=== PATIENT | male | born 1960 | race American Indian/Alaskan Native ===

== ENCOUNTER 2019-03-18 06:36 | Day surgery (SDC) | payer OTHER ==
[~2019-03-18 06:36] MED LIST: Lactated Ringers 1,000 ML IV SCH; ceFAZolin 2 GM in Premix Bag 1 BAG IV SCH
[2019-03-18] MEDS ORDERED: Lidocaine 2% 5 ML SDV ONE (07:16)
[2019-03-18] MEDS ORDERED: Midazolam 1 MG/ML 2 ML SDV ONE (07:18)
[2019-03-18] MEDS ORDERED: fentaNYL 250 MCG/5 ML SDV ONE (07:18)
[2019-03-18] MEDS ORDERED: Propofol 200 MG/20 ML SDV ONE (07:19)
[2019-03-18] MEDS ORDERED: Bupivacaine 0.5% 10 ML SDV ONE (07:27)
--- NOTE | 2019-03-18 07:33 | PCM.PREANE ---
Preanesthetic Assessment - Anesthesia/Transfusion/Family Hx Anesthesia History: Prior Anesthesia Without Reaction Family History of Anesthesia Reaction: No Transfusion History: No Prior Transfusion(s) - Review of Systems General: No Symptoms Pulmonary: No Symptoms Cardiovascular: No Symptoms Gastrointestinal: No Symptoms Neurological: No Symptoms Other: Reports: None - Physical Assessment NPO Status Date: 03/17/19 O2 Sat by Pulse Oximetry: 94 Respiratory Rate: 16 Vital Signs: Last Vital Signs Temp 97.2 F 03/18/19 07:08 Pulse 91 03/18/19 07:08 Resp 16 03/18/19 07:08 BP 128/92 H 03/18/19 07:08 Pulse Ox 94 L 03/18/19 07:08 Height: 6 ft 1.5 in Weight: 115.666 kg ASA Class: 1 Mental Status: Alert & Oriented x3 Airway Class: Mallampati = 1 Dentition: Reports: Normal Dentition ROM/Head Extension: Full Lungs: Clear to Auscultation, Normal Respiratory Effort Cardiovascular: Regular Rate, Regular Rhythm - Allergies Allergies/Adverse Reactions: Allergies Allergy/AdvReac Type Severity Reaction Status Date / Time No Known Allergies Allergy Verified 03/15/19 10:56 - Blood Blood Available: No - Anesthesia Plan Pre-Op Medication Ordered: None - Acknowledgements Anesthesia Type Planned: General Anesthesia, MAC Pt an Appropriate Candidate for the Planned Anesthesia: Yes Alternatives and Risks of Anesthesia Discussed w Pt/Guardian: Yes Pt/Guardian Understands and Agrees with Anesthesia Plan: Yes PreAnesthesia Questionnaire HEENT History: Reports: Other (See Below) Other HEENT History: wears glasses Gastrointestinal History: Reports: Other (See Below) Other Gastrointestinal History: occasional heartburn- takes Rolaids Musculoskeletal History: Reports: Fracture Other Musculoskeletal History: hx of fx left clavicle, left elbow and right index finger- no hardware Endocrine/Metabolic History: Reports: Obesity/BMI 30+ Dermatologic History: Reports: Other (See Below) Other Dermatologic History: currently has itchy rash on left side of head - Past Surgical History GI Surgical History: Reports: Hernia, Inguinal Musculoskeletal Surgical History: Reports: Other (See Below) Other Musculoskeletal Surgeries/Procedures:: 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 [No Known Home Meds] 03/15/19 [History] - CURRENT (IN HOUSE) MEDS Current Meds: Current Medications Lactated Ringer's (Ringers, Lactated) 1,000 mls @ 125 mls/hr IV ASDIRECTED [facility] Last Admin: 03/18/19 07:15 Dose: 125 mls/hr Discontinued Medications Bupivacaine HCl (Sensorcaine-Mpf 0.5%) Confirm Administered Dose 10 ml .ROUTE .STK-MED ONE Stop: 03/18/19 07:28 Fentanyl (Sublimaze) Confirm Administered Dose 250 mcg .ROUTE .STK-MED ONE Stop: 03/18/19 07:19 Cefazolin Sodium/Dextrose 2 gm (/ Premix) 50 mls @ 100 mls/hr IV ASDIRECTED [facility] Stop: 03/18/19 06:29 Lidocaine (Xylocaine-Mpf 2%) Confirm Administered Dose 5 ml .ROUTE .STK-MED ONE Stop: 03/18/19 07:17 Midazolam HCl (Versed 1 Mg/Ml) Confirm Administered Dose 2 mg .ROUTE .STK-MED ONE Stop: 03/18/19 07:19 Propofol (Diprivan 20 Ml) Confirm Administered Dose 200 mg .ROUTE .STK-MED ONE Stop: 03/18/19 07:20
[2019-03-18] MEDS ORDERED: ceFAZolin/Dextrose,Iso-Osmotic 2 GM/50 ML Duplex Bag IV ONE (07:57)
[2019-03-18] MEDS ORDERED: Rocuronium 100 MG/10 ML Syringe ONE (08:25)
[2019-03-18] MEDS ORDERED: Ondansetron 4 MG/2 ML SDV ONE (08:47)
[2019-03-18] MEDS ORDERED: Dexamethasone 4 MG/ML 5 ML MDV ONE (08:47)
[2019-03-18] MEDS ORDERED: Neostigmine Methylsulfate 1 MG/ML 5 ML Syringe ONE (09:51)
[2019-03-18] MEDS ORDERED: Glycopyrrolate 0.2 MG/ML SDV ONE (09:51)
[2019-03-18] MEDS ORDERED: Ketorolac 30 MG/ML SDV ONE (09:51)
--- NOTE | 2019-03-18 10:30 | PCM.POSTAN ---
POST ANESTHESIA ASSESSMENT - MENTAL STATUS Mental Status: Alert, Oriented - RESPIRATORY Respiratory Status: Respiratory Rate WNL, Airway Patent, O2 Saturation Stable - CARDIOVASCULAR CV Status: Pulse Rate WNL, Blood Pressure Stable - GASTROINTESTINAL GI Status: No Symptoms - POST OP HYDRATION Hydration Status: Adequate & Stable
--- NOTE | 2019-03-18 10:35 | PCM.OPNOTE ---
- General Post-Op/Procedure Note Date of Surgery/Procedure: 03/18/19 Operative Procedure(s): open reduction with internal fixation of fifth metatarsal fracture left foot Findings: consistent with diagnosis Pre Op Diagnosis: fifth metatarsal fracture left foot Post-Op Diagnosis: fifth metatarsal fracture left foot Anesthesia Technique: General LMA Primary Surgeon: Chip Olson Pathology: none EBL in mLs: 4 Complications: none Condition: Good Free Text/Narrative:: materials: [employer] ASNIS 3 cannulated screw 5.0 mm diameter, 42 mm length 3-0 Vicryl suture 4-0 Prolene suture injectables: 6 ml 0.5% marcaine plain hemostasis: above ankle pneumatic tourniquet with time of 57 min at 250 mm Hg
--- NOTE | 2019-03-18 10:53 | PN ---
DATE OF SURGERY: Today, March 18, 2019. DIAGNOSIS: Fracture of 5th metatarsal, left foot. PLANNED PROCEDURE: Open reduction with internal fixation of fracture of 5th metatarsal, left foot. ANESTHESIA: General. HEMOSTASIS: Will be by above-ankle pneumatic tourniquet inflated to a pressure of 250 mmHg. MEDICAL HISTORY: Past medical history is unremarkable. ALLERGIES: The patient has no known allergies. PAST SURGICAL HISTORY: Includes minor surgery for trauma to his right middle finger and a tendon repair to right forearm done under general anesthesia. MEDICATIONS: The patient has no medications at this time. LABORATORY DATA: White blood cell 5.43, red blood cell 5.40, hemoglobin 15.8, hematocrit 45.9, platelets 217. Glucose 95, calcium 9.9, BUN 17, creatinine 1.07, sodium 139, potassium 4.0, chloride 102, CO2 of 30. Anion gap is 7. Chest x-ray showed no cardiomegaly, no pulmonary edema, no pleural effusion, and a healed left clavicular fracture. The patient also has an old T7 compression fracture. EKG showed normal sinus rhythm, ventricular rate of 70 beats per minute. No evidence of left ventricular hypertrophy. No evidence of ischemia or prior myocardial infarction. The patient was cleared for surgery by Dr. Naseem Moreira. The patient's questions have been asked and answered. No guarantees expressed or implied. Risks and benefits have been discussed with the patient and the patient has consented for surgery in writing with a witness present today, March 18, 2019. CAROLS / SAUD /[id number]
--- NOTE | 2019-03-18 13:18 | CR ---
EXAMINATION: Left fifth toe HISTORY: Procedure COMPARISON: None TECHNIQUE: 7 views FINDINGS/IMPRESSION: Operative control films demonstrates placement of a single screw fixating a proximal fifth metatarsal fracture.
--- NOTE | 2019-03-19 01:56 | OR ---
SURGEON: Chip Olson DPM DATE OF PROCEDURE: 03/18/2019 PREOPERATIVE DIAGNOSIS: Fracture of the 5th metatarsal, left foot. POSTOPERATIVE DIAGNOSIS: Fracture of the 5th metatarsal, left foot. OPERATIVE PROCEDURE: Open reduction with internal fixation of 5th metatarsal fracture, left foot. FINDINGS: Consistent with diagnosis. HEMOSTASIS: Above-ankle pneumatic tourniquet inflated to a pressure of 250 mmHg after an Esmarch bandage exsanguination of the left lower extremity. PATHOLOGY: None. ESTIMATED BLOOD LOSS: 4 mL. COMPLICATIONS: None. MATERIALS: One [place] cannulated partially-threaded Asnis screw 5 mm diameter x 42 mm in length, 4-0 Vicryl, 4-0 Prolene. INJECTABLES: 6 mL of 0.5% Marcaine plain. CONDITION: The patient tolerated the procedure and the anesthesia well, there were no complications noted, and the patient had a prompt hyperemic response to all digits of the left foot following deflation of the above-ankle pneumatic tourniquet. JUSTIFICATION FOR THE PROCEDURE: The patient is a 58-year-old male who twisted and injured his left foot fracturing the base of the 5th metatarsal. Fracture had sufficient distraction that conservative treatment is unlikely to be able to achieve healing for the patient and unlikely to achieve it certainly in the time frame that he desires, which can be significantly shortened or even enabled by surgery. The patient was re-x-rayed yesterday in my office and the fracture while still nondisplaced has even greater distraction than it did originally, now distracted 3 mm with a [id number] break of the bone from medial to lateral. The patient understands the risks and benefits of surgery, and all the patient's questions were asked and answered. The patient desires surgery as soon as possible and has agreed to surgical correction today, March 18, 2019. No guarantees of any sort were expressed or implied, risks and benefits were discussed, as I said all the patient's questions were answered. The patient understands that in particular there is a risk of nonunion in such cases. However, this surgery will give him the best opportunity to heal and heal soon. PROCEDURE IN DETAIL: The patient was brought to the operating room, placed on the operating table in a supine position. Anesthesia was administered. The patient was rotated into a lateral decubitus position with the left lower extremity positioned so that the lateral aspect of the foot was in a superior position. Aseptic scrub and drape were performed about the left lower extremity and an above-ankle pneumatic tourniquet was placed prior to this superior to the left ankle. Preoperative fluoroscopy was utilized to guerline the anatomy and plan the incision site just proximal to the base of the 5th metatarsal of the left foot. After the Esmarch bandage exsanguination, the tourniquet was inflated to 250 mmHg and a 2 cm oblique incision was made proximal to the base of the 5th metatarsal. The incision was deepened with a curved mosquito hemostat and the peroneal tendons were visualized and the base of the 5th metatarsal was accessed at all times. The peroneal tendons were retracted and neurovascular structures were also retracted as needed for protection. A threaded guidewire was placed on a micro drill and under intraoperative fluoroscopy was advanced through the base of the 5th metatarsal into the shaft of the bone from proximal to distal and redirected as necessary to achieve the ideal placement desired. The guidewire was then used with a cannulated 3.5 mm drill bit over the site to prepare the area for the eventual insertion of the intramedullary screw. Drilling was up to the midshaft of bone. Tapping was unnecessary for this particular case, no tap was inserted. Countersinking with a 6-0 countersink was performed and measurement was performed as well. A 5 mm x 42 mm screw was selected and this screw was placed over the guidewire as the screw was also cannulated and mounted on the screwdriver and inserted under intraoperative fluoroscopy. Excellent compression was noted, and final x-rays were taken with good reduction and good positioning of the screw. Surgical site was flushed with normal sterile saline, and layered closure was performed with the subcutaneous tissue reapproximated with 3-0 Vicryl suture and the superficial skin with 4-0 Prolene suture. 6 mL of 0.5% Marcaine plain was infiltrated about the surgical site. Tourniquet was deflated at the time of approximately 57 minutes. Betadine-soaked Xeroform gauze was placed over the incision site followed by 4x4 fluff gauze, Kerlix roll, stockinette, cast padding, and then a [id number] fiberglass cast. The patient had a prompt hyperemic response after deflation of the tourniquet to all digits of the left foot, and he was transferred from the operating room to the recovery room with vital signs normal, vascular status intact. In the recovery room, I used a cast cutter to bivalve the cast and then secured with Rocky bandages. This will allow for any potential swelling that may occur postoperatively. Written and verbal instructions were given to the patient upon discharge, and he has medication for adequate analgesic care and also has a followup appointment in my office. The patient has already been provided a shower bag to keep the dressings clean and dry. The patient is instructed verbally and in writing to be strictly nonweightbearing to the left lower extremity until further notice. CARLOS / SAUD /[id number]
== END 2019-03-18 11:40 | disposition home or self-care (01) ==
LOC: MW.SDS 06:36
PROVIDERS: ATTEND Podiatrist Foot & Ankle Surgery
DX: S92.355A Nondisplaced fracture of fifth metatarsal bone, left foot, initial encounter for closed fracture (principal); F17.290 Nicotine dependence, other tobacco product, uncomplicated; X50.1XXA Overexertion from prolonged static or awkward postures, initial encounter
CPT/HCPCS: 28485; 76000; J0131; J0690; J1100; J1885; J2001; J2250; J2405; J2704; J3010; J3490; J7120